=== PATIENT | female | born 2000 | race Caucasian/White ===

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

== ENCOUNTER 2020-07-10 10:18 | Emergency (ER) | payer MEDICAID, SELFPAY ==
[2020-07-10 10:19] VITALS: BP 114/77; PULSE 87; RESP 16; TEMP 530.9; TEMP 987.6; O2SAT 98; BMI 18.3
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
[2020-07-10] MEDS: Ondansetron 4 MG/2 ML Vial IV (11:00)
== END 2020-07-10 12:12 | disposition home or self-care (01) ==
PROVIDERS: Emergency Provider Student in an Organized Health Care Education/Training Program; PCP Student in an Organized Health Care Education/Training Program
DX: S06.0X9A Concussion with loss of consciousness of unspecified duration, initial encounter (principal); V43.02XA Car driver injured in collision with other type car in nontraffic accident, initial encounter; Y93.9 Activity, unspecified; Y92.410 Unspecified street and highway as the place of occurrence of the external cause; Y99.9 Unspecified external cause status; R11.2 Nausea with vomiting, unspecified; F17.200 Nicotine dependence, unspecified, uncomplicated; F10.10 Alcohol abuse, uncomplicated; Y90.9 Presence of alcohol in blood, level not specified
CPT/HCPCS: 70450; 96374; 99283; A4216; J2405

== ENCOUNTER → 2021-02-24 11:02 | Outpatient (CLI) | payer MEDICAID, SELFPAY ==
[2021-02-25 22:07] LABS: Chlamydia By Nucleic Acid AMP Negative (Negative)
[2021-02-26 15:53] LABS: Gonococcus By Nucleic Acid AMP Negative (Negative)
== END ==
PROVIDERS: PCP Student in an Organized Health Care Education/Training Program; Visit Provider Student in an Organized Health Care Education/Training Program
DX: Z11.3 Encounter for screening for infections with a predominantly sexual mode of transmission (principal)
CPT/HCPCS: 87491; 87591

== ENCOUNTER → 2021-11-09 | Outpatient (CLI) | payer MEDICAID, SELFPAY ==
[2021-11-11 22:06] LABS: Chlamydia By Nucleic Acid AMP Negative (Negative)
[2021-11-12 15:39] LABS: Gonococcus By Nucleic Acid AMP Negative (Negative)
== END | disposition home or self-care (01) ==
LOC: LABSPEC 13:51
PROVIDERS: PCP Student in an Organized Health Care Education/Training Program; Visit Provider Student in an Organized Health Care Education/Training Program
DX: Z11.3 Encounter for screening for infections with a predominantly sexual mode of transmission (principal)
CPT/HCPCS: 87491; 87591